=== PATIENT | male | born 1995 | race African-American/Black ===

== ENCOUNTER 2024-04-05 16:48 | Emergency (ER) | payer OTHER, SELFPAY ==
[2024-04-05 16:51] VITALS: BP 160/85; PULSE 76; RESP 16; TEMP 36.4; O2SAT 100
--- NOTE | 2024-04-05 16:56 | ED_ITS ---
HPI - Dental/Oral General Chief complaint: Dental/Oral Stated complaint: tooth pain Time Seen by Provider: 04/05/24 16:54 History of Present Illness HPI Narrative: 29-year-old male presents to the emergency room for evaluation of right lower molar dental pain for several days. Been taking Tylenol and ibuprofen with no relief. Also been attempting to apply topical lidocaine with no symptom relief. States he has a dental appointment on April 25. Related Data Allergies Allergy/AdvReac Type Severity Reaction Status Date / Time No Known Allergies Allergy Verified 04/05/24 16:53 Review of Systems Review of Systems: ROS unremarkable except for noted in HPI Exam Narrative: GENERAL: Well-appearing, well-nourished, no physical limitations, and in no acute distress. HEAD: Normocephalic, atraumatic. EYES: Conjunctivae normal, PERRLA and EOMI. ENT: Widespread periodontal disease. Yessenia noted to right lower molar. No obvious dental abscess noted CHEST: Clear to auscultation. No respiratory distress. No wheezes rales or r honchi. HEART: Regular rate and rhythm. No murmur heard. Normal peripheral pulses. EXTREMITIES: Normal range of motion. No edema. No clubbing or cyanosis SKIN: Warm, dry, no rash. No noted wounds NEURO: No focal deficits. Alert and oriented x3. MAEW. CN's II-XI intact bilaterally, normal gait PSYCH: Cooperative. Normal mood and affect. Course Vital Signs Vital signs: Vital Signs Temperature 36.4 C 04/05/24 16:51 Pulse Rate 76 04/05/24 16:51 Respiratory Rate 16 04/05/24 16:51 Blood Pressure 160/85 H 04/05/24 16:51 Pulse Oximetry 100 04/05/24 16:51 Temperature 36.4 C 04/05/24 16:51 Pulse Rate 76 04/05/24 16:51 Respiratory Rate 16 04/05/24 16:51 Blood Pressure 160/85 H 04/05/24 16:51 Pulse Oximetry 100 04/05/24 16:51 Discharge Plan Discharge Clinical Impression: Toothache, Dental caries Patient Disposition: Home, Self-Care Condition: Stable Instructions: Antibiotic Form, Toothache (ED) Prescriptions: New naproxen 500 mg tablet 500 mg PO BID Qty: 20 0RF clindamycin HCl 300 mg capsule 300 mg PO TID Qty: 21 0RF Follow-up/Referrals: PHYSICIAN NOT ON STAFF,NONSTAFF [Primary Care Provider] - Stand Alone Forms: Work/School Release IP Time of Disposition: 16:54
== END 2024-04-05 17:37 | disposition home or self-care (01) ==
LOC: ANHED 17:02
PROVIDERS: Emergency Provider Nurse Practitioner Family
DX: K02.9 Dental caries, unspecified (principal)
CPT/HCPCS: 99283